=== PATIENT | male | born 2000 | race Caucasian/White ===

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

== ENCOUNTER 2021-01-05 11:56 | Emergency (ER) | payer OTHER ==
[~2021-01-05] VITALS: Ht 180.3 cm; Wt 99.3 kg
[2021-01-05 11:59] VITALS: Ht 180.3 cm; Wt 99.3 kg
[2021-01-05 12:52] VITALS: BP 120/67
== END 2021-01-05 12:52 | disposition home or self-care (01) ==
LOC: ED 11:56
DX: R04.2 Hemoptysis (principal); F17.210 Nicotine dependence, cigarettes, uncomplicated; K21.9 Gastro-esophageal reflux disease without esophagitis; F41.9 Anxiety disorder, unspecified; Z71.6 Tobacco abuse counseling
CPT/HCPCS: 99406